=== PATIENT | female | born 1995 | race Caucasian/White ===

== ENCOUNTER 2020-12-17 23:34 | Inpatient (IN) ==
[2020-12-17] MEDS ORDERED: OXYTOCIN 30 UNITS/500 ML BAG IV PRN (23:37)
[2020-12-17] MEDS ORDERED: PATIENT'S ALLERGY INFO NEEDS ENTERED SCH (23:45)
--- NOTE | 2020-12-17 23:48 | Labor Progress Brief Note ---
Date of Service December 17, 2020 Subjective Admit Note 25 F P0000 at 39.3 weeks admitted in active labor starting last night at midnight. No leakage of fluid or bleeding. GBS is negative. Covid is pending. FHT Cat 1 with regular contractions. Cervix is 6/90/-2/vertex/intact. EFW 7 lbs. Will admit in labor. Planning for epidural. Anticipate normal delivery.
[2020-12-18 00:13] LABS: Hematocrit (blood only) 36.1 % (37-47); Hemoglobin 12.3 g/dL (12.0-16.0); Mean Corpuscular Hemoglobin 27.5 pg (25-34); Mean Corpuscular Hgb Conc 34.1 g/dL (32-36); Mean Corpuscular Volume 80.6 fL (80-100); Mean Platelet Volume 10.5 fL (7.4-10.4); Platelet Count 228 K/uL (130-400); RDW Coefficient of Variation 14.1 % (11.5-14.5); RDW Standard Deviation 41.7 fL (36.4-46.3); Red Blood Count 4.48 M/uL (4.2-5.4); White Blood Count 9.15 K/uL (4.8-10.8)
[2020-12-18] MEDS ORDERED: fentaNYL citrate 100 MCG/2 ML VIAL ONE ×2 (00:21→15:07)
[2020-12-18] MEDS ORDERED: ePHEDrine sulfate 50 MG/ML AMP ONE (00:21)
[2020-12-18] MEDS ORDERED: BUPIVACAINE 0.25% 30 ML VIAL ONE (00:21)
[2020-12-18] MEDS ORDERED: fentaNYL 2MCG/ML ROPIVACAINE 1.25MG/ML 100 ML BAG EPI ONE (00:22)
[2020-12-18] MEDS ORDERED: SODIUM CHLORIDE 0.9% INJ 10 ML VIAL ONE (00:57)
[2020-12-18] MEDS ORDERED: fentaNYL 2MCG/ML ROPIVACAINE 1.25MG/ML 100 ML BAG EPI PRN (01:10)
[2020-12-18] MEDS ORDERED: NALOXONE HCL 0.4 MG/1 ML VIAL/CARP IV PRN (01:10)
[2020-12-18] MEDS ORDERED: diphenhydrAMINE 50 MG/ML VIAL IV PRN ×2 (01:10→17:06)
[2020-12-18] MEDS ORDERED: ePHEDrine sulfate 50 MG/ML AMP IV PRN (01:10)
[2020-12-18] MEDS ORDERED: NALOXONE HCL 1 MG in SODIUM CHLORIDE 0.9% 1000ML 1,000 ML IV PRN (01:10)
--- NOTE | 2020-12-18 01:10 | Anesthesiology Consultation ---
Date of Service December 18, 2020 Assessment & Plan (1) Encounter for pre-operative examination: Chart Review Chart Review: Patient NOT seen in Pre Admission Testing and Acceptable Risk for Labor Epidural Consults Requested none ASA ASA2 Proposed Anesthesia Anesthesia Type: Labor Epidural Risk / Benefits Reviewed With: PT / POA / Parent / Guardian, Accepts Plan and Informed Consent Obtained History Height/Weight Height: 5 ft 5 in Weight: 75.75 kg Allergies Allergy/AdvReac Type Severity Reaction Status Date / Time No Known Allergies Allergy Verified 12/18/20 00:07 Medications Home Medications Medication Instructions Recorded Confirmed Last Taken [id number]-ryn-Fy-FA 1 tab PO DAILY 12/18/20 12/18/20 12/17/20 08:00 [] Active Medications Generic Name Dose Route Start Last Admin Trade Name Freq PRN Reason Stop Dose Admin Lactated Ringer's 1,000 mls @ 125 mls/hr 12/17/20 23:37 12/18/20 00:30 Lr IV 12/19/20 23:36 125 mls/hr .Q8H PRN Infusion L&D Protocol Protocol NPO Date Last Intake of Fluids: 12/17/20 Time Last Intake of Fluids: 23:00 Date Last Intake of Solids: 12/17/20 Time Last Intake of Solids: 18:00 Past Medical History Medical History No known health problems Exercise / Class Metabolic Activity II 4-5 Yardwork/Stairs/Walk up hill Past Surgical History Surgical History No history of previous surgery Past Anesthesia History No Hx of Anesthesia Complications and No Family Hx of Anesthesia Complications History of PONV No Hx of PONV and No Hx of Motion Sickness Social History Smoking Status: Never smoker Hx Alcohol Use: No Hx Substance Use: No Physical Exam Vital Signs Last Vital Signs Temp 36.8 C 12/18/20 00:12 Pulse 88 12/18/20 01:06 Resp 18 12/17/20 23:39 BP 119/64 12/18/20 01:05 Pulse Ox 97 12/18/20 01:06 ENMT Mouth: no dentition abnormality Thyromental Distance: > or= 3.5 Finger Breadths Mallampati Class: II Neck normal visual inspection Respiratory normal respiratory effort Auscultation: lungs clear to auscultation bilaterally Cardiovascular Rate/Rhythm: regular rate and regular rhythm Psychiatric Orientation: alert Lab Results Anesthesia Preop Results Results Anesthesia Widget: WBC 9.15 K/uL (4.8-10.8) 12/17/20 Hgb 12.3 g/dL (12.0-16.0) 12/17/20 Hct 36.1 % (37-47) L 12/17/20 Plt 228 K/uL (130-400) 12/17/20 SARS-CoV-2, RNA, NAAT NEGATIVE (NEGATIVE) 12/17/20 Testing Laboratory Results 12/17/20 23:53
[2020-12-18] MEDS: LACTATED RINGER'S 1,000 ML IV PRN ×3 (04:23→15:19)
--- NOTE | 2020-12-18 08:22 | Progress Note ---
Date of Service December 18, 2020 Assessment & Plan Admission and Anticipated Discharge Date Admission Date: December 17, 2020 Subjective Met pt and spouse Reviewed PNC with pt FHR CAT1 VE; 10/0 with bulging membranes AROM- with amnio hook- Light meconium anticipate VD Results & Data ([place]) Vital Signs (Past 12 Hours) Vital Signs Temp Pulse Resp BP Pulse Ox 12/18/20 08:17 112 H 80 L 12/18/20 08:16 98 H 99 12/18/20 08:11 101 H 100 12/18/20 08:08 95 H 111/69 12/18/20 08:06 84 99 12/18/20 08:01 91 H 99 12/18/20 07:56 94 H 98 12/18/20 07:52 96 H 113/68 12/18/20 07:51 91 H 97 12/18/20 07:46 84 98 12/18/20 07:41 93 H 98 12/18/20 07:37 131 H 135/61 12/18/20 07:36 128 H 98 12/18/20 07:31 98 H 98 12/18/20 07:26 91 H 98 12/18/20 07:22 100 H 104/69 12/18/20 07:21 93 H 96 12/18/20 07:16 83 97 12/18/20 07:11 85 97 12/18/20 07:06 89 119/61 98 12/18/20 07:01 73 98 12/18/20 07:00 37 C 18 12/18/20 06:56 83 98 12/18/20 06:52 78 110/63 12/18/20 06:51 81 98 12/18/20 06:49 87 93 12/18/20 06:46 73 98 12/18/20 06:41 86 98 12/18/20 06:36 85 113/64 98 12/18/20 06:31 87 98 12/18/20 06:26 89 97 12/18/20 06:22 82 116/59 L 12/18/20 06:21 83 97 12/18/20 06:16 78 99 12/18/20 06:11 87 97 12/18/20 06:06 64 115/56 L 97 12/18/20 06:01 78 98 12/18/20 05:56 80 98 12/18/20 05:53 75 117/64 12/18/20 05:51 75 98 12/18/20 05:46 86 98 12/18/20 05:41 80 99 12/18/20 05:36 76 111/57 L 98 12/18/20 05:31 80 99 12/18/20 05:30 78 92 12/18/20 05:26 90 98 12/18/20 05:21 74 115/61 98 12/18/20 05:16 60 99 12/18/20 05:11 73 99 12/18/20 05:08 68 110/55 L 12/18/20 05:06 80 100 12/18/20 05:04 18 12/18/20 05:01 93 H 98 12/18/20 04:56 80 99 12/18/20 04:55 18 12/18/20 04:51 71 114/65 98 12/18/20 04:46 79 99 12/18/20 04:41 78 98 12/18/20 04:36 77 116/61 98 12/18/20 04:31 85 99 12/18/20 04:30 36.6 C 18 12/18/20 04:26 89 99 12/18/20 04:23 75 116/57 L 12/18/20 04:21 78 97 12/18/20 04:16 84 98 12/18/20 04:11 67 96 12/18/20 04:06 83 100/63 97 12/18/20 04:01 71 97 12/18/20 03:56 81 97 12/18/20 03:51 85 102/62 96 12/18/20 03:46 69 96 12/18/20 03:41 78 98 12/18/20 03:36 78 101/63 97 12/18/20 03:31 80 97 12/18/20 03:26 59 L 97 12/18/20 03:21 85 112/63 98 12/18/20 03:16 69 96 12/18/20 03:11 72 97 12/18/20 03:06 76 109/63 97 12/18/20 03:01 80 96 12/18/20 02:56 76 96 12/18/20 02:52 65 112/66 05 02:51 67 97 12/18/20 02:46 62 97 12/18/20 02:41 81 97 12/18/20 02:38 71 102/53 L 12/18/20 02:36 86 98/56 L 97 12/18/20 02:31 82 98 12/18/20 02:30 18 12/18/20 02:26 89 99 12/18/20 02:21 89 116/67 98 12/18/20 02:16 93 H 98 12/18/20 02:11 104 H 98 12/18/20 02:08 82 112/62 12/18/20 02:06 67 98 12/18/20 02:01 86 98 12/18/20 01:56 74 98 12/18/20 01:52 88 103/64 12/18/20 01:51 88 98 12/18/20 01:47 18 12/18/20 01:46 96 H 100 12/18/20 01:41 70 98 12/18/20 01:36 67 115/67 98 12/18/20 01:31 104 H 99 12/18/20 01:30 18 12/18/20 01:26 83 98 12/18/20 01:21 103 H 114/69 97 12/18/20 01:16 82 97 12/18/20 01:15 18 12/18/20 01:11 83 97 12/18/20 01:10 18 12/18/20 01:06 88 97 12/18/20 01:05 86 18 119/64 12/18/20 01:03 94 H 115/65 12/18/20 01:01 83 127/68 98 12/18/20 01:00 18 12/18/20 00:56 98 H 135/79 97 12/18/20 00:55 109 H 18 93 12/18/20 00:51 101 H 97 12/18/20 00:46 113 H 98 12/18/20 00:16 88 119/72 12/18/20 00:12 36.8 C 12/17/20 23:39 18
[2020-12-18] MEDS ORDERED: miSOPROStoL 100 MCG TAB ONE (08:25)
[2020-12-18] MEDS ORDERED: METHYLERGONOVINE MALEATE 0.2 MG/ML AMP ONE (08:25)
[2020-12-18] MEDS ORDERED: LIDOCAINE 1% LOCAL 20 ML VIAL ONE (08:36)
[2020-12-18] MEDS ORDERED: bisacodyL 10 MG SUPP PR PRN (09:12)
[2020-12-18] MEDS ORDERED: DIPHTHERIA/TETANUS/PERTUSSIS 0.5 ML SYR/VIAL IM ONE (09:12)
[2020-12-18] MEDS ORDERED: ACETAMINOPHEN 325 MG TAB PO PRN (09:12)
[2020-12-18] MEDS ORDERED: HYDROCORTISONE ACETATE 25 MG SUPP PR PRN ×2 (09:12→17:06)
[2020-12-18] MEDS ORDERED: METHYLERGONOVINE MALEATE 0.2 MG/ML AMP IM ONE (09:12)
[2020-12-18] MEDS ORDERED: SUPERCREAM 0.870% 15 GM JAR EXT PRN ×2 (09:12→17:06)
[2020-12-18] MEDS ORDERED: OXYTOCIN 30 UNITS/500 ML BAG IV PRN (09:12)
[2020-12-18] MEDS ORDERED: BENZOCAINE 20% AER SPR 82.5 GM CAN EXT PRN ×2 (09:12→17:06)
[2020-12-18] MEDS ORDERED: miSOPROStoL 100 MCG TAB PR ONE (09:12)
--- NOTE | 2020-12-18 10:16 | Delivery Summary ---
DATE OF OPERATION: 12/18/2020 The patient delivered a live infant female in left occiput anterior presentation. There was known meconium prior to delivery. Infant was delivered. No nuchal cord was seen. was placed on mother's abdomen. Cord was clamped and cut and handed over to the waiting pediatric team. No delayed cord clamp was performed because of the meconium. Meconium after delivery appeared to be moderate to thick. Cord blood was obtained. Placenta was spontaneously delivered. Inspection of the placenta shows a normal-looking placenta with some meconium stain. Inspection of the perineum showed a second-degree midline laceration, which was repaired with 2-0 and 3-0 Vicryl. Rectal exam post repair shows good sphincter tone, no sutures are palpated in the rectum. Estimated blood loss is 450 mL. There was good hemostasis. All instruments are removed from the vagina and accounted for x2 including sponges, needles and retractors. Mother and baby are doing well in the recovery. I attest to the content of the Intraoperative Record and any orders documented therein. Any exceptions are noted below. STACEY
--- NOTE | 2020-12-18 10:33 | Anesthesia Procedure Note ---
Date of Service December 18, 2020 Anesthesia Post Epidural Note Vital Signs Vital Signs: Temp Pulse Resp BP Pulse Ox 36.9 C 82 20 139/73 100 12/18/20 09:00 12/18/20 10:21 12/18/20 10:30 12/18/20 10:21 12/18/20 09:11 Notes Mental Status: alert / awake / arousable and participated in evaluation Patient Amnestic to Procedure: No Nausea / Vomiting: adequately controlled Pain: adequately controlled Airway Patency, RR, SpO2: stable & adequate BP & HR: stable & adequate Hydration State: stable & adequate Neuraxial Anesthesia: was administered and sensory block is resolving Anesthetic Complications: no major complications apparent and Pt Satisfied with anesthetic care Epidural: Removed without complications and With tip intact
[2020-12-18] MEDS: IBUPROFEN 600 MG TAB PO PRN ×2 (10:42→18:57)
[2020-12-18] MEDS ORDERED: MoRPHine SULFATE 4 MG/ML 1 ML CARP\\VIAL IV STA (14:54)
[2020-12-18] MEDS ORDERED: MoRPHine SULFATE 4 MG/ML 1 ML CARP\\VIAL ONE (14:58)
[2020-12-18] MEDS ORDERED: ONDANSETRON INJ 2 MG/ML 2 ML VIAL IV PRN ×2 (15:16→17:06)
[2020-12-18] MEDS ORDERED: ATROPINE SULFATE 0.1 MG/ML 10ML SYR IV PRN (15:16)
[2020-12-18] MEDS ORDERED: HYDROmorphone INJ 1 MG/ML SYRINGE IV PRN (15:16)
[2020-12-18] MEDS ORDERED: fentaNYL citrate 100 MCG/2 ML VIAL IV PRN (15:16)
--- NOTE | 2020-12-18 15:16 | Progress Note ---
Date of Service December 18, 2020 Assessment & Plan Admission and Anticipated Discharge Date Admission Date: December 17, 2020 Subjective called to evaluate pt with c/o rectal pressure PE; Nml bilateral labia. Digital exam is significant for a rt lateral wall hematoma plan Evaluate vagina in OR under anesthesia and consider I&D of vaginal hematoma Consent obtained Results & Data ([facility]) Vital Signs (Past 12 Hours) Vital Signs Temp Pulse Pulse Resp BP BP Pulse Ox 12/18/20 15:00 82 18 124/73 100 12/18/20 11:30 36.9 C 88 16 117/75 12/18/20 10:51 78 141/65 H 12/18/20 10:37 93 H 142/63 H 12/18/20 10:30 20 12/18/20 10:21 82 139/73 12/18/20 10:07 144 H 158/97 H 12/18/20 10:00 20 12/18/20 09:37 97 H 128/60 12/18/20 09:21 92 H 125/68 12/18/20 09:13 109 H 125/73 12/18/20 09:11 105 H 100 12/18/20 09:07 99 H 123/63 12/18/20 09:06 101 H 99 12/18/20 09:03 95 H 86 L 12/18/20 09:01 105 H 100 12/18/20 09:00 36.9 C 104 H 18 134/69 12/18/20 08:56 96 H 100 12/18/20 08:51 98 H 120/68 100 12/18/20 08:49 96 H 116/66 12/18/20 08:46 100 H 100 12/18/20 08:41 102 H 98 12/18/20 08:36 100 H 115/65 98 12/18/20 08:32 104 H 120/62 12/18/20 08:31 109 H 97 12/18/20 08:29 181 H 92 12/18/20 08:26 151 H 97 12/18/20 08:25 16 12/18/20 08:24 129 H 92 12/18/20 08:22 169 H 127/72 12/18/20 08:21 126 H 99 12/18/20 08:17 112 H 80 L 12/18/20 08:16 98 H 99 12/18/20 08:11 101 H 100 12/18/20 08:08 95 H 111/69 12/18/20 08:06 84 99 12/18/20 08:01 91 H 99 12/18/20 07:56 94 H 98 12/18/20 07:55 18 12/18/20 07:52 96 H 113/68 12/18/20 07:51 91 H 97 12/18/20 07:46 84 98 12/18/20 07:41 93 H 98 12/18/20 07:37 131 H 135/61 12/18/20 07:36 128 H 98 12/18/20 07:31 98 H 98 12/18/20 07:26 91 H 98 12/18/20 07:25 18 12/18/20 07:22 100 H 104/69 12/18/20 07:21 93 H 96 12/18/20 07:16 83 97 12/18/20 07:11 85 97 12/18/20 07:06 89 119/61 98 12/18/20 07:01 73 98 12/18/20 07:00 37 C 18 12/18/20 06:56 83 98 12/18/20 06:52 78 110/63 12/18/20 06:51 81 98 12/18/20 06:49 87 93 12/18/20 06:46 73 98 12/18/20 06:41 86 98 12/18/20 06:36 85 113/64 98 12/18/20 06:31 87 98 12/18/20 06:26 89 97 12/18/20 06:22 82 116/59 L 12/18/20 06:21 83 97 12/18/20 06:16 78 99 12/18/20 06:11 87 97 12/18/20 06:06 64 115/56 L 97 12/18/20 06:01 78 98 12/18/20 05:56 80 98 12/18/20 05:53 75 117/64 12/18/20 05:51 75 98 12/18/20 05:46 86 98 12/18/20 05:41 80 99 12/18/20 05:36 76 111/57 L 98 12/18/20 05:31 80 99 05 05:30 78 92 12/18/20 05:26 90 98 12/18/20 05:21 74 115/61 98 12/18/20 05:16 60 99 12/18/20 05:11 73 99 12/18/20 05:08 68 110/55 L 12/18/20 05:06 80 100 12/18/20 05:04 18 12/18/20 05:01 93 H 98 12/18/20 04:56 80 99 12/18/20 04:55 18 12/18/20 04:51 71 114/65 98 12/18/20 04:46 79 99 12/18/20 04:41 78 98 12/18/20 04:36 77 116/61 98 12/18/20 04:31 85 99 12/18/20 04:30 36.6 C 18 12/18/20 04:26 89 99 12/18/20 04:23 75 116/57 L 12/18/20 04:21 78 97 12/18/20 04:16 84 98 12/18/20 04:11 67 96 12/18/20 04:06 83 100/63 97 12/18/20 04:01 71 97 12/18/20 03:56 81 97 12/18/20 03:51 85 102/62 96 12/18/20 03:46 69 96 12/18/20 03:41 78 98 12/18/20 03:36 78 101/63 97 12/18/20 03:31 80 97 12/18/20 03:26 59 L 97 12/18/20 03:21 85 112/63 98 12/18/20 03:16 69 96 12/18/20 03:11 72 97
--- NOTE | 2020-12-18 15:25 | Anesthesiology Consultation ---
Date of Service December 18, 2020 Assessment & Plan (1) Encounter for pre-operative examination: Chart Review Chart Review: Acceptable Risk for Surgery and Patient NOT seen in Pre Admission Testing Consults Requested none History Surgery Operation Date: 12/18/20 14:10 Proposed Procedures p Vaginal Incision and Drainage, Hematoma - Minesh Bliss MD Height/Weight Height: 5 ft 5 in Weight: 75.75 kg Allergies Allergy/AdvReac Type Severity Reaction Status Date / Time No Known Allergies Allergy Verified 12/18/20 00:07 Medications Home Medications Medication Instructions Recorded Confirmed Last Taken ushwwpvy-jzy-Xs-FA 1 tab PO DAILY 12/18/20 12/18/20 12/17/20 08:00 [] Active Medications Generic Name Dose Route Start Last Admin Trade Name Freq PRN Reason Stop Dose Admin Benzocaine 1 appln 12/18/20 09:12 12/18/20 12:54 Benzocaine 20% Aer Spr 82.5 Gm Can EXT 01/17/21 09:11 1 appln PRN PRN Administration Perineal Discomfort Cocaine HCl 1 gm 12/18/20 09:12 12/18/20 15:19 Supercream 0.870% 15 Gm Jar EXT 01/01/21 09:11 1 gm BID PRN Administration Hemorrhoidal Inflammation Oxytocin 30 units in 500 mls @ 333.333 mls/hr 12/17/20 23:37 12/18/20 08:30 Pitocin IV 01/16/21 23:36 59.94 units/hr .Q1H30M PRN 999 mls/hr Bleeding Control Administration Protocol 20 UNITS/HR Lactated Ringer's 1,000 mls @ 125 mls/hr 12/17/20 23:37 12/18/20 15:19 Lr IV 12/19/20 23:36 125 mls/hr .Q8H PRN Administration L&D Protocol Protocol Ibuprofen 600 mg 12/18/20 09:12 12/18/20 10:42 Ibuprofen 600 Mg Tab PO 01/17/21 09:11 600 mg Q4H PRN Administration Pain/BAILEY/Cramping/Fever NPO Date Last Intake of Fluids: 12/17/20 Time Last Intake of Fluids: 23:00 Date Last Intake of Solids: 12/17/20 Time Last Intake of Solids: 18:00 Past Medical History Medical History No known health problems Exercise / Class Metabolic Activity II 4-5 Yardwork/Stairs/Walk up hill Past Surgical History Surgical History No history of previous surgery Past Anesthesia History No Hx of Anesthesia Complications and No Family Hx of Anesthesia Complications History of PONV No Hx of PONV and No Hx of Motion Sickness Social History Smoking Status: Never smoker Do You Dip or Chew Tobacco: No Hx Alcohol Use: No Hx Substance Use: No Physical Exam Vital Signs Last Vital Signs Temp 36.9 C 12/18/20 11:30 Pulse 82 12/18/20 15:00 Resp 18 12/18/20 15:00 BP 124/73 12/18/20 15:00 Pulse Ox 100 12/18/20 15:00 Testing Laboratory Results 12/17/20 23:53
[2020-12-18] MEDS ORDERED: LACTATED RINGER'S 1,000 ML IV SCH ×2 (16:00→17:15)
[2020-12-18] MEDS ORDERED: ONDANSETRON INJ 2 MG/ML 2 ML VIAL ONE (16:22)
[2020-12-18] MEDS ORDERED: LIDOCAINE 2% 2 ML VIAL/AMP(20MG/ML) INFIL ONE (16:22)
[2020-12-18] MEDS ORDERED: DEXAMETHASONE SOD INJ 4 MG/ML VIAL ONE (16:22)
[2020-12-18] MEDS ORDERED: SUCCINYLCHOLINE CHLORIDE 20 MG/ML 10 ML VIAL IV ONE (16:22)
[2020-12-18] MEDS ORDERED: PROPOFOL IV EMULSION 10 MG/ML 20 ML VIAL IV ONE (16:22)
[2020-12-18] MEDS ORDERED: SENNA 8.6 MG TAB PO PRN (17:06)
[2020-12-18] MEDS ORDERED: PROMETHAZINE HCL 25 MG in SODIUM CHLORIDE 0.9% 50 ML IV PRN (17:06)
[2020-12-18] MEDS ORDERED: oxyCODONE/ACETAMINOPHEN 5mg/325mg TAB PO PRN (17:06)
[2020-12-18] MEDS ORDERED: diphenhydrAMINE Capsule 25 MG CAP PO PRN (17:06)
[2020-12-18] MEDS ORDERED: MAGNESIUM HYDROXIDE SUSP 30 ML UDC PO PRN (17:06)
[2020-12-18] MEDS ORDERED: ZOLPIDEM TARTRATE 5 MG TAB PO PRN (17:06)
[2020-12-18] MEDS ORDERED: IBUPROFEN 600 MG TAB PO PRN (17:06)
--- NOTE | 2020-12-18 17:11 | Post Operative Brief Note ---
Immediate Post Op Note v1 Date of Surgery December 18, 2020 Pre & Post Diagnosis Operation Date: 12/18/20 14:10 Pre-Op Diagnosis: Vaginal Hematoma Post-Op Diagnosis: Vaginal Hematoma I identified the patient and participated in the time-out.: Yes Procedure Operation Date: 12/18/20 14:10 Actual Procedures p Incision and Drainage, Vaginal Hematoma(Not Applicable) - Minesh Bliss MD Surgeon Minesh Bliss MD Device Sales Consultant none Estimated Blood Loss 110 Findings Consistent with Post-Op Diagnosis
--- NOTE | 2020-12-18 18:03 | Anesthesiology Progress Note ---
Date of Service December 18, 2020 Anesthesia Post Procedure Vital Signs Vital Signs: Temp Pulse Pulse Pulse Resp BP BP 12/18/20 17:38 36.6 C 71 20 116/73 12/18/20 17:30 81 20 114/71 12/18/20 17:20 86 18 133/80 12/18/20 17:10 79 15 123/79 12/18/20 17:00 75 20 128/83 12/18/20 16:57 36.3 C L 85 18 120/78 12/18/20 16:00 37.5 C 78 18 12/18/20 15:00 82 18 12/18/20 11:30 36.9 C 88 16 12/18/20 10:51 78 141/65 H 12/18/20 10:37 93 H 142/63 H 12/18/20 10:30 20 12/18/20 10:21 82 139/73 12/18/20 10:07 144 H 158/97 H 12/18/20 10:00 20 12/18/20 09:37 97 H 128/60 12/18/20 09:21 92 H 125/68 12/18/20 09:13 109 H 125/73 12/18/20 09:11 105 H 12/18/20 09:07 99 H 123/63 12/18/20 09:06 101 H 12/18/20 09:03 95 H 12/18/20 09:01 105 H 12/18/20 09:00 36.9 C 104 H 18 134/69 12/18/20 08:56 96 H 12/18/20 08:51 98 H 120/68 12/18/20 08:49 96 H 116/66 12/18/20 08:46 100 H 12/18/20 08:41 102 H 12/18/20 08:36 100 H 115/65 12/18/20 08:32 104 H 120/62 12/18/20 08:31 109 H 12/18/20 08:29 181 H 12/18/20 08:26 151 H 12/18/20 08:25 16 12/18/20 08:24 129 H 12/18/20 08:22 169 H 127/72 12/18/20 08:21 126 H 12/18/20 08:17 112 H 12/18/20 08:16 98 H 12/18/20 08:11 101 H 12/18/20 08:08 95 H 111/69 12/18/20 08:06 84 12/18/20 08:01 91 H 12/18/20 07:56 94 H 12/18/20 07:55 18 12/18/20 07:52 96 H 113/68 12/18/20 07:51 91 H 12/18/20 07:46 84 12/18/20 07:41 93 H 12/18/20 07:37 131 H 135/61 12/18/20 07:36 128 H 12/18/20 07:31 98 H 12/18/20 07:26 91 H 12/18/20 07:25 18 12/18/20 07:22 100 H 104/69 12/18/20 07:21 93 H 12/18/20 07:16 83 12/18/20 07:11 85 12/18/20 07:06 89 119/61 12/18/20 07:01 73 12/18/20 07:00 37 C 18 12/18/20 06:56 83 12/18/20 06:52 78 110/63 12/18/20 06:51 81 12/18/20 06:49 87 12/18/20 06:46 73 12/18/20 06:41 86 12/18/20 06:36 85 113/64 12/18/20 06:31 87 12/18/20 06:26 89 12/18/20 06:22 82 116/59 L 12/18/20 06:21 83 12/18/20 06:16 78 12/18/20 06:11 87 12/18/20 06:06 64 115/56 L 12/18/20 06:01 78 12/18/20 05:56 80 12/18/20 05:53 75 117/64 12/18/20 05:51 75 12/18/20 05:46 86 12/18/20 05:41 80 12/18/20 05:36 76 111/57 L 12/18/20 05:31 80 12/18/20 05:30 78 12/18/20 05:26 90 12/18/20 05:21 74 115/61 12/18/20 05:16 60 12/18/20 05:11 73 12/18/20 05:08 68 110/55 L 12/18/20 05:06 80 12/18/20 05:04 18 12/18/20 05:01 93 H 12/18/20 04:56 80 12/18/20 04:55 18 12/18/20 04:51 71 114/65 12/18/20 04:46 79 12/18/20 04:41 78 12/18/20 04:36 77 116/61 12/18/20 04:31 85 12/18/20 04:30 36.6 C 18 12/18/20 04:26 89 12/18/20 04:23 75 116/57 L 12/18/20 04:21 78 12/18/20 04:16 84 12/18/20 04:11 67 12/18/20 04:06 83 100/63 12/18/20 04:01 71 12/18/20 03:56 81 12/18/20 03:51 85 102/62 12/18/20 03:46 69 12/18/20 03:41 78 12/18/20 03:36 78 101/63 12/18/20 03:31 80 12/18/20 03:26 59 L 12/18/20 03:21 85 112/63 12/18/20 03:16 69 12/18/20 03:11 72 12/18/20 03:06 76 109/63 12/18/20 03:01 80 12/18/20 02:56 76 12/18/20 02:52 65 112/66 12/18/20 02:51 67 12/18/20 02:46 62 12/18/20 02:41 81 12/18/20 02:38 71 102/53 L 12/18/20 02:36 86 98/56 L 12/18/20 02:31 82 12/18/20 02:30 18 12/18/20 02:26 89 12/18/20 02:21 89 116/67 12/18/20 02:16 93 H 12/18/20 02:11 104 H 12/18/20 02:08 82 112/62 12/18/20 02:06 67 12/18/20 02:01 86 12/18/20 01:56 74 12/18/20 01:52 88 103/64 12/18/20 01:51 88 12/18/20 01:47 18 12/18/20 01:46 96 H 12/18/20 01:41 70 12/18/20 01:36 67 115/67 12/18/20 01:31 104 H 12/18/20 01:30 18 12/18/20 01:26 83 12/18/20 01:21 103 H 114/69 12/18/20 01:16 82 12/18/20 01:15 18 12/18/20 01:11 83 12/18/20 01:10 18 12/18/20 01:06 88 12/18/20 01:05 86 18 119/64 12/18/20 01:03 94 H 115/65 12/18/20 01:01 83 127/68 12/18/20 01:00 18 12/18/20 00:56 98 H 135/79 12/18/20 00:55 109 H 18 12/18/20 00:51 101 H 12/18/20 00:46 113 H 12/18/20 00:16 88 119/72 12/18/20 00:12 36.8 C 12/17/20 23:39 18 BP Pulse Ox 12/18/20 17:38 96 12/18/20 17:30 97 12/18/20 17:20 97 12/18/20 17:10 100 12/18/20 17:00 99 12/18/20 16:57 99 12/18/20 16:00 125/77 99 12/18/20 15:00 124/73 100 12/18/20 11:30 117/75 12/18/20 10:51 12/18/20 10:37 12/18/20 10:30 12/18/20 10:21 12/18/20 10:07 12/18/20 10:00 12/18/20 09:37 12/18/20 09:21 12/18/20 09:13 12/18/20 09:11 100 12/18/20 09:07 12/18/20 09:06 99 12/18/20 09:03 86 L 12/18/20 09:01 100 12/18/20 09:00 12/18/20 08:56 100 12/18/20 08:51 100 12/18/20 08:49 12/18/20 08:46 100 12/18/20 08:41 98 12/18/20 08:36 98 12/18/20 08:32 12/18/20 08:31 97 12/18/20 08:29 92 12/18/20 08:26 97 12/18/20 08:25 12/18/20 08:24 92 12/18/20 08:22 12/18/20 08:21 99 12/18/20 08:17 80 L 12/18/20 08:16 99 12/18/20 08:11 100 12/18/20 08:08 12/18/20 08:06 99 12/18/20 08:01 99 12/18/20 07:56 98 12/18/20 07:55 12/18/20 07:52 12/18/20 07:51 97 12/18/20 07:46 98 12/18/20 07:41 98 12/18/20 07:37 12/18/20 07:36 98 12/18/20 07:31 98 12/18/20 07:26 98 12/18/20 07:25 12/18/20 07:22 12/18/20 07:21 96 12/18/20 07:16 97 12/18/20 07:11 97 12/18/20 07:06 98 12/18/20 07:01 98 12/18/20 07:00 12/18/20 06:56 98 12/18/20 06:52 12/18/20 06:51 98 12/18/20 06:49 93 12/18/20 06:46 98 12/18/20 06:41 98 12/18/20 06:36 98 12/18/20 06:31 98 12/18/20 06:26 97 12/18/20 06:22 12/18/20 06:21 97 12/18/20 06:16 99 12/18/20 06:11 97 12/18/20 06:06 97 12/18/20 06:01 98 12/18/20 05:56 98 12/18/20 05:53 12/18/20 05:51 98 12/18/20 05:46 98 12/18/20 05:41 99 05 05:36 98 12/18/20 05:31 99 05 05:30 92 05/28/21 05:26 98 12/18/20 05:21 98 12/18/20 05:16 99 12/18/20 05:11 99 12/18/20 05:08 12/18/20 05:06 100 12/18/20 05:04 12/18/20 05:01 98 12/18/20 04:56 99 12/18/20 04:55 12/18/20 04:51 98 12/18/20 04:46 99 12/18/20 04:41 98 12/18/20 04:36 98 12/18/20 04:31 99 12/18/20 04:30 12/18/20 04:26 99 12/18/20 04:23 12/18/20 04:21 97 12/18/20 04:16 98 12/18/20 04:11 96 12/18/20 04:06 97 12/18/20 04:01 97 12/18/20 03:56 97 12/18/20 03:51 96 12/18/20 03:46 96 12/18/20 03:41 98 12/18/20 03:36 97 12/18/20 03:31 97 12/18/20 03:26 97 12/18/20 03:21 98 12/18/20 03:16 96 12/18/20 03:11 97 12/18/20 03:06 97 12/18/20 03:01 96 12/18/20 02:56 96 12/18/20 02:52 12/18/20 02:51 97 12/18/20 02:46 97 12/18/20 02:41 97 12/18/20 02:38 12/18/20 02:36 97 12/18/20 02:31 98 12/18/20 02:30 12/18/20 02:26 99 12/18/20 02:21 98 12/18/20 02:16 98 12/18/20 02:11 98 12/18/20 02:08 12/18/20 02:06 98 12/18/20 02:01 98 12/18/20 01:56 98 12/18/20 01:52 12/18/20 01:51 98 12/18/20 01:47 12/18/20 01:46 100 12/18/20 01:41 98 12/18/20 01:36 98 12/18/20 01:31 99 12/18/20 01:30 12/18/20 01:26 98 12/18/20 01:21 97 12/18/20 01:16 97 12/18/20 01:15 12/18/20 01:11 97 12/18/20 01:10 12/18/20 01:06 97 12/18/20 01:05 12/18/20 01:03 12/18/20 01:01 98 12/18/20 01:00 12/18/20 00:56 97 12/18/20 00:55 93 12/18/20 00:51 97 12/18/20 00:46 98 12/18/20 00:16 12/18/20 00:12 12/17/20 23:39 Pain Intensity Perineal: Pain Intensity: 10 Transfer of Care Handoff Completed per policy Notes Mental Status: alert / awake / arousable and participated in evaluation Patient Amnestic to Procedure: Yes Nausea / Vomiting: adequately controlled Pain: adequately controlled Airway Patency, RR, SpO2: stable & adequate BP & HR: stable & adequate Hydration State: stable & adequate Anesthetic Complications: no major complications apparent and Pt Satisfied with anesthetic care
[2020-12-18] MEDS: DOCUSATE SODIUM 100 MG CAP PO SCH (20:47)
[2020-12-18] MEDS: SIMETHICONE 80 MG CHEW PO SCH (20:47)
[2020-12-18] MEDS ORDERED: DOCUSATE SODIUM 100 MG CAP PO SCH (21:00)
[2020-12-19] MEDS: IBUPROFEN 600 MG TAB PO PRN ×3 (00:48→17:04)
[2020-12-19 05:58] LABS: Hematocrit (blood only) 30.7 % (37-47); Hemoglobin 10.3 g/dL (12.0-16.0); Mean Corpuscular Hemoglobin 27.2 pg (25-34); Mean Corpuscular Hgb Conc 33.6 g/dL (32-36); Mean Corpuscular Volume 81.2 fL (80-100); Mean Platelet Volume 10.1 fL (7.4-10.4); Platelet Count 203 K/uL (130-400); RDW Coefficient of Variation 14.4 % (11.5-14.5); RDW Standard Deviation 42.7 fL (36.4-46.3); Red Blood Count 3.78 M/uL (4.2-5.4); White Blood Count 14.19 K/uL (4.8-10.8)
[2020-12-19] MEDS ORDERED: PRENATAL VITAMIN 1 TAB PO SCH (08:00)
[2020-12-19] MEDS ORDERED: FERROUS SULFATE 325 MG TAB PO SCH (08:00)
[2020-12-19] MEDS: DOCUSATE SODIUM 100 MG CAP PO SCH ×2 (08:05→21:51)
[2020-12-19] MEDS: PRENATAL VITAMIN 1 TAB PO SCH (08:05)
[2020-12-19] MEDS: FERROUS SULFATE 325 MG TAB PO SCH (08:05)
[2020-12-19] MEDS: SIMETHICONE 80 MG CHEW PO SCH ×4 (08:05→21:51)
--- NOTE | 2020-12-19 08:54 | Obstetrical Progress Note ---
Date of Service December 19, 2020 Assessment & Plan Admission and Anticipated Discharge Date Admission Date: December 17, 2020 Subjective Patient is seen and examined. She feels well, no complaints. Ambulating without dizziness Voiding without difficulty Tolerating regular diet with out N&V Bleeding is minimal No fever/ chills/ CP/ SOB/ N&V/ Leg pain Breast feeding without problems She had rectal pain/ pressure and found to have vaginal hematoma and I&D was done. She feels much better, states " like a different person" Has not had BM yet, eating her 1st meal. No h/o constipation Vital Signs Temp Pulse Resp BP BP Pulse Ox 12/19/20 05:30 36.7 C 82 16 108/70 98 12/19/20 01:45 36.7 C 67 16 109/66 98 12/18/20 21:00 37.2 C 90 16 109/69 96 Lab Results 12/17/20 12/17/20 12/17/20 Range/Units 23:53 23:53 23:53 WBC 9.15 (4.8-10.8) K/uL RBC 4.48 (4.2-5.4) M/uL Hgb 12.3 (12.0-16.0) g/dL Hct 36.1 L (37-47) % MCV 80.6 (80-100) fL MCH 27.5 (25-34) pg MCHC 34.1 (32-36) g/dL RDW Std Deviation 41.7 (36.4-46.3) fL RDW Coeff of Jeniffer 14.1 (11.5-14.5) % Plt Count 228 (130-400) K/uL MPV 10.5 H (7.4-10.4) fL COVID-19 Eval Order Covid19 [facility]Now [facility] SARS-CoV-2, RNA, NAAT NEGATIVE (NEGATIVE) Blood Type Antibody Screen 12/18/20 12/19/20 Range/Units 15:36 05:30 WBC 14.19 H (4.8-10.8) K/uL RBC 3.78 L (4.2-5.4) M/uL Hgb 10.3 L (12.0-16.0) g/dL Hct 30.7 L (37-47) % MCV 81.2 (80-100) fL MCH 27.2 (25-34) pg MCHC 33.6 (32-36) g/dL RDW Std Deviation 42.7 (36.4-46.3) fL RDW Coeff of Jeniffer 14.4 (11.5-14.5) % Plt Count 203 (130-400) K/uL MPV 10.1 (7.4-10.4) fL COVID-19 Eval Order SARS-CoV-2, RNA, NAAT (NEGATIVE) Blood Type O Positive Antibody Screen NEGATIVE PE: General: Alert, orientedx3, NAD Abd: soft, NT, fundus firm, below Umbilicus Perineum intact, Lochia rubra minimal No swelling, no edema, anal skin/ area appears normal Gentle digital exam 1 finger feels normal Ext; NT, no edema AP: 25 yo s/p , ppd# 1, s/p I&D of vaginal hematoma, pod #1 VSS Afebrile doing well PE normal Continue routine care All questions were answered D/C home tomorrow Results & Data ([facility]) Vital Signs (Past 12 Hours) Vital Signs Temp Pulse Resp BP BP Pulse Ox 12/19/20 05:30 36.7 C 82 16 108/70 98 12/19/20 01:45 36.7 C 67 16 109/66 98 12/18/20 21:00 37.2 C 90 16 109/69 96
[2020-12-19] MEDS ORDERED: bisacodyL 5 MG TABEC PO SCH ×2 (20:00)
[2020-12-20] MEDS: IBUPROFEN 600 MG TAB PO PRN ×2 (00:01→07:35)
[2020-12-20] MEDS: FERROUS SULFATE 325 MG TAB PO SCH (07:35)
[2020-12-20] MEDS: SIMETHICONE 80 MG CHEW PO SCH (07:35)
[2020-12-20] MEDS: DOCUSATE SODIUM 100 MG CAP PO SCH (07:35)
[2020-12-20] MEDS: PRENATAL VITAMIN 1 TAB PO SCH (07:35)
--- NOTE | 2020-12-20 10:26 | Obstetrical Progress Note ---
Date of Service December 20, 2020 Assessment & Plan Admission and Anticipated Discharge Date Admission Date: December 17, 2020 Subjective Patient is seen and examined. She feels well, no complaints. Desires d/c Ambulating without dizziness Voiding without difficulty BM+, no pain Tolerating regular diet with out N&V Bleeding is minimal No fever/ chills/ CP/ SOB/ N&V/ Leg pain Breast feeding without problems Vital Signs Temp Pulse Resp BP BP Pulse Ox 12/20/20 07:31 36.7 C 80 18 108/66 98 12/20/20 07:30 36.7 C 81 18 107/70 100 12/20/20 00:30 36.8 C 66 16 110/63 96 Lab Results 12/17/20 12/17/20 12/17/20 Range/Units 23:53 23:53 23:53 WBC 9.15 (4.8-10.8) K/uL RBC 4.48 (4.2-5.4) M/uL Hgb 12.3 (12.0-16.0) g/dL Hct 36.1 L (37-47) % MCV 80.6 (80-100) fL MCH 27.5 (25-34) pg MCHC 34.1 (32-36) g/dL RDW Std Deviation 41.7 (36.4-46.3) fL RDW Coeff of Jeniffer 14.1 (11.5-14.5) % Plt Count 228 (130-400) K/uL MPV 10.5 H (7.4-10.4) fL COVID-19 Eval Order Covid19 [facility] SARS-CoV-2, RNA, NAAT NEGATIVE (NEGATIVE) Blood Type Antibody Screen 12/18/20 12/19/20 Range/Units 15:36 05:30 WBC 14.19 H (4.8-10.8) K/uL RBC 3.78 L (4.2-5.4) M/uL Hgb 10.3 L (12.0-16.0) g/dL Hct 30.7 L (37-47) % MCV 81.2 (80-100) fL MCH 27.2 (25-34) pg MCHC 33.6 (32-36) g/dL RDW Std Deviation 42.7 (36.4-46.3) fL RDW Coeff of Jeniffer 14.4 (11.5-14.5) % Plt Count 203 (130-400) K/uL MPV 10.1 (7.4-10.4) fL COVID-19 Eval Order SARS-CoV-2, RNA, NAAT (NEGATIVE) Blood Type O Positive Antibody Screen NEGATIVE PE: General: Alert, orientedx3, NAD Abd: soft, NT, fundus firm, below Umbilicus Perineum intact, Lochia rubra minimal Ext; NT, no edema AP: 25 yo s/p , ppd# 2 VSS Afebrile doing well Continue routine care All questions were answered D/C home, f/u in office. Results & Data ([facility]) Vital Signs (Past 12 Hours) Vital Signs Temp Pulse Resp BP BP Pulse Ox 12/20/20 07:31 36.7 C 80 18 108/66 98 12/20/20 07:30 36.7 C 81 18 107/70 100 12/20/20 00:30 36.8 C 66 16 110/63 96
--- NOTE | 2020-12-22 08:00 | Operative Report (OR) ---
DATE OF OPERATION: 12/18/2020 INDICATION FOR SURGERY: This is a 25-year-old status post vaginal delivery this morning, who was finally noted to have vaginal hematoma. The patient was taken to the operating room for evacuation of hematoma. PREOPERATIVE DIAGNOSES: 1. Spontaneous vaginal delivery. 2. Right vaginal hematoma. POSTOPERATIVE DIAGNOSES: 1. Spontaneous vaginal delivery. 2. Right vaginal hematoma. PROCEDURE: Examination under anesthesia, incision and drainage of vaginal hematoma. SURGEON: Minesh Bliss MD SAW MAKER: None. ESTIMATED BLOOD LOSS: 100 mL. URINE OUTPUT: 1000 mL of clear urine at the end of the procedure. INTRAVENOUS FLUIDS: 600 mL. FINDINGS: Right vaginal hematoma about 5 x 4 cm. ____ examination in the OR was intact. COMPLICATIONS: None. DRAINS: None. ANESTHESIA: General. SPECIMENS: None. DESCRIPTION OF PROCEDURE: The patient was taken to the operating room where she was prepped and draped in normal sterile fashion in dorsal lithotomy position. Time-out was called. Bladder was catheterized and 1000 mL of clear urine was obtained. Inspection of the vagina and perineum showed a 5 x 4 right wall vaginal hematoma. The laceration was repaired this morning after vaginal delivery remained intact. An incision was made in the hematoma and hematoma clots evacuated. The edges of the incision were ____ with 3-0 Vicryl to keep the opening patent. There was good hemostasis. Rectal exam was performed and the rectum was intact. The rectum was not involved in the hematoma or the dissection of the hematoma area. All instruments were removed from the vagina and accounted for x2 including sponges, needles, and retractors. The patient is stable and sent to recovery in stable condition. I attest to the content of the Intraoperative Record and any orders documented therein. Any exception s are noted below.
--- NOTE | 2021-01-06 10:34 | Discharge Summary (DS) ---
DATE OF ADMISSION: 12/18/2020 DATE OF DISCHARGE: 12/20/2020 CHIEF COMPLAINT: at term and in labor. HISTORY OF PRESENT ILLNESS: This is a 25-year-old G1, P0, due date was 12/21/2020 who was admitted to labor and delivery on 12/17/2020. On that day, she was 39 weeks and 4 days. The patient went on to have a vaginal delivery on 12/18/2020. Details of the delivery is in the medical records. Delivery was otherwise unremarkable. Later on, patient developed a vaginal hematoma. She was taken to the operating room where an incision and drainage of the hematoma was performed. Once again, details of that surgery is also in the medical record. The patient did well and was discharged home on 12/20/2020. PAST MEDICAL HISTORY: No history of diabetes, hypertension, or asthma. PAST SURGICAL HISTORY: None. SOCIAL HISTORY: The patient is and lives with spouse. FAMILY HISTORY: Noncontributory. ALLERGIES: NO KNOWN DRUG ALLERGIES. REVIEW OF SYSTEMS: Negative except as dictated in the HPI. VITAL SIGNS: On 12/20/2020, blood pressure was 110/63, pulse was 80, respiration of 18, temperature was 36.7. LABORATORIES ON DISCHARGE: The patient's labs on 12/19/2020 showed hemoglobin of 10.3, hematocrit of 30.7. CONDITION ON DISCHARGE: Stable. PHYSICAL EXAMINATION: GENERAL: Well-developed, well-nourished white female in no acute distress. CARDIOVASCULAR: S1, S2, regular rhythm and rate. LUNGS: Clear to auscultation bilaterally. ABDOMEN: Nontender, nondistended. Fundus was firm and below umbilicus. EXTREMITIES: No cyanosis, clubbing or edema. OPERATIONS: 1. Spontaneous vaginal delivery. 2. Incision and drainage of vaginal hematoma . DISCHARGE DIAGNOSES: 1. . 2. Incision and drainage of vaginal hematoma post-delivery. PLAN ON DISCHARGE: The patient is discharged home with instructions regarding activity, diet, and followup appointment. STACEY
== END 2020-12-20 11:05 | disposition home or self-care (01) | DRG 768 ==
LOC: OPB 23:34 → 4S1 23:37 → 4S2 12-18 11:49

== ENCOUNTER 2023-03-20 09:08 | Inpatient (IN) ==
[2023-03-20] MEDS ORDERED: LIDOCAINE 1% LOCAL 20 ML VIAL INFIL PRN (09:42)
[2023-03-20] MEDS ORDERED: OXYTOCIN 30 UNITS/500 ML BAG IV PRN ×3 (09:42→14:34)
[2023-03-20] MEDS ORDERED: LACTATED RINGER'S 1,000 ML IV PRN (09:42)
--- NOTE | 2023-03-20 09:59 | History & Physical Report ---
Date of Service March 20, 2023 Assessment & Plan (1) : Plan: Augment ctx History of Present Illness Chief Complaint: contractions Primary Care Provider: Marcus Silverio MD 27 F [id number] at 39.5 weeks in early labor. GBS is negative. Allergies Allergy/AdvReac Type Severity Reaction Status Date / Time No Known Allergies Allergy Verified 12/18/20 00:07 Home Medications Medication Instructions Recorded Confirmed Type vits no.124-ferrous fum 1 tab PO DAILY@08 #90 tabs 12/20/20 03/20/23 Rx 27 mg iron-folic acid 800 mcg tablet ( Vitamin) ferrous sulfate 325 mg (65 mg 325 mg PO BID 03/20/23 03/20/23 History iron) tablet (iron) Patient History Medical History Bilateral kidney stones will have follow up 3 months PP Hx of abnormal cervical Pap smear repeat WNL Hx of maternal vaginal hematoma, currently with last baby, needed I&D Splenomegaly incidental finding. 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 Review of Systems All systems reviewed & are unremarkable except as noted in HPI & below Physical Exam Constitutional: WD/WN, vitals as above Eyes: PERRL, conjunctivae normal, anicteric sclerae Respiratory: normal respiratory effort, lungs clear to auscultation Cardiovascular: RRR, no murmur, no edema Gastrointestinal (Abdomen): normal bowel sounds, soft, nontender, no hepatosplenomegaly Skin: no rashes, warm and dry Neurologic: patellar DTR's 2+ bilat, sensation intact Psychiatric: A+Ox3, euthymic affect Genitourinary: no vaginal lesions, no adnexal mass OB Exam Abdomen: + fundal height and + vertex Manual OB Exam: + cervical dilation 3 cm, + cervical effacement 70% and + station high OB Exam Monitor Tracing: + external FHT monitor used, + external uterine monitor used, + category I and + normal FHT variability EFW 7.5 lbs. Results & Data Vital Signs (Past 12 Hours) Vital Signs Pulse BP 03/20/23 09:24 84 116/72 Code Status & VTE Plan VTE Prophylaxis Plan VTE Prophylaxis will be ordered: No Monitoring External Monitor Cat 1
[2023-03-20 10:18] LABS: Hematocrit (blood only) 34.5 % (37.0-47.0); Hemoglobin 11.9 g/dl (12.0-16.0); Mean Corpuscular Hemoglobin 27.4 pg (25.0-34.0); Mean Corpuscular Hgb Conc 34.5 g/dL (32.0-36.0); Mean Corpuscular Volume 79.3 fL (80.0-100.0); Mean Platelet Volume 10.8 fL (9.4-12.4); Platelet Count 141 K/uL (130-400); RDW Coefficient of Variation 15.2 % (11.5-14.5); RDW Standard Deviation 43.6 fL (36.4-46.3); Red Blood Count 4.35 M/uL (4.20-5.40); White Blood Count 6.57 K/ul (4.8-10.8)
[2023-03-20] MEDS ORDERED: SODIUM CHLORIDE 0.9% PF INJ 10 ML VIAL ONE (12:05)
[2023-03-20] MEDS ORDERED: BUPIVACAINE 0.25% PF 30 ML VIAL ONE (12:05)
[2023-03-20] MEDS ORDERED: LIDOCAINE 2%/EPINEPHRINE 1:200,000 20 ML PF ONE (12:05)
[2023-03-20] MEDS ORDERED: ePHEDrine sulfate 50 MG/ML AMP ONE (12:05)
[2023-03-20] MEDS ORDERED: fentaNYL citrate PF 100 MCG/2 ML VIAL ONE (12:05)
[2023-03-20] MEDS ORDERED: fentaNYL 2MCG/ML ROPIVACAINE 1.25MG/ML 100 ML BAG EPI ONE (12:06)
[2023-03-20] MEDS ORDERED: ONDANSETRON INJ 2 MG/ML 2 ML VIAL IV PRN (13:07)
[2023-03-20] MEDS ORDERED: LIDOCAINE 2% MPF LOCAL 5 ML VIAL EPI PRN (13:07)
[2023-03-20] MEDS ORDERED: NALOXONE HCL 1 MG in SODIUM CHLORIDE 0.9% 1000ML 1,000 ML IV PRN (13:07)
[2023-03-20] MEDS ORDERED: NALOXONE HCL 0.4 MG/1 ML VIAL/CARP IV PRN (13:07)
[2023-03-20] MEDS ORDERED: ROPIVACAINE 0.5% PF 5 MG/ML 20 ML VIAL EPI PRN (13:07)
[2023-03-20] MEDS ORDERED: BUPIVACAINE 0.25% PF 30 ML VIAL EPI STA (13:07)
[2023-03-20] MEDS ORDERED: SODIUM CHLORIDE 0.9% PF INJ 10 ML VIAL EPI PRN (13:07)
[2023-03-20] MEDS ORDERED: fentaNYL citrate PF 100 MCG/2 ML VIAL EPI STA (13:07)
[2023-03-20] MEDS ORDERED: ePHEDrine sulfate 50 MG/ML AMP IV PRN (13:07)
[2023-03-20] MEDS ORDERED: NALBUPHINE HCL INJ 10 MG/ML AMP IV PRN (13:07)
[2023-03-20] MEDS ORDERED: fentaNYL citrate PF 100 MCG/2 ML VIAL EPI PRN (13:07)
[2023-03-20] MEDS ORDERED: SODIUM CHLORIDE 0.9% PF INJ 10 ML VIAL EPI STA (13:07)
[2023-03-20] MEDS ORDERED: fentaNYL 2MCG/ML ROPIVACAINE 1.25MG/ML 100 ML BAG EPI PRN (13:07)
[2023-03-20] MEDS ORDERED: BUPIVACAINE 0.25% PF 30 ML VIAL EPI PRN (13:07)
[2023-03-20] MEDS ORDERED: LIDOCAINE 2%/EPINEPHRINE 1:200,000 20 ML PF EPI STA (13:07)
[2023-03-20] MEDS ORDERED: diphenhydrAMINE 50 MG/ML VIAL IV PRN (13:07)
--- NOTE | 2023-03-20 13:07 | Anesthesiology Consultation ---
Date of Service March 20, 2023 Assessment & Plan Chart Review Chart Review: Patient NOT seen in Pre Admission Testing and Acceptable Risk for Labor Epidural Consults Requested none ASA ASA2 Proposed Anesthesia Anesthesia Type: Labor Epidural Risk / Benefits Reviewed With: PT / POA / Parent / Guardian, Accepts Plan and Informed Consent Obtained History Height/Weight Height: 5 ft 4 in Weight: 80.286 kg Allergies Allergy/AdvReac Type Severity Reaction Status Date / Time No Known Allergies Allergy Verified 12/18/20 00:07 Medications Home Medications Medication Instructions Recorded Confirmed Last Taken vits no.124-ferrous fum 1 tab PO DAILY@08 #90 tabs 12/20/20 03/20/23 03/19/23 09:00 27 mg iron-folic acid 800 mcg tablet ( Vitamin) ferrous sulfate 325 mg (65 mg 325 mg PO BID 03/20/23 03/20/23 03/19/23 20:00 iron) tablet (iron) Active Medications Generic Name Dose Route Start Last Admin Trade Name Freq PRN Reason Stop Dose Admin Lactated Ringer's 1,000 mls @ 125 mls/hr 03/20/23 09:42 03/20/23 12:00 Lr IV 03/22/23 09:41 999 mls/hr .Q8H PRN Infusion L&D Protocol Protocol Oxytocin 30 units in 500 mls @ 7 mls/hr 03/20/23 09:45 03/20/23 12:00 Pitocin IV 03/22/23 09:44 0.42 units/hr .Q24H PRN 7 mls/hr Labor Induction/Augmentation Titration Protocol 0.42 UNITS/HR Past Medical History Medical History Bilateral kidney stones will have follow up 3 months PP Hx of abnormal cervical Pap smear repeat WNL Hx of maternal vaginal hematoma, currently with last baby, needed I&D Splenomegaly incidental finding. Will have follow up PP Exercise / Class Metabolic Activity II 4-5 Yardwork/Stairs/Walk up hill Past Anesthesia History No Hx of Anesthesia Complications and No Family Hx of Anesthesia Complications History of PONV No Hx of PONV and No Hx of Motion Sickness Social History Smoking Status: Never smoker Do You Dip or Chew Tobacco: No Hx Alcohol Use: No Hx Substance Use: No Physical Exam Vital Signs Last Vital Signs Temp 37.0 C 03/20/23 09:33 Pulse 89 03/20/23 13:04 Resp 20 03/20/23 09:33 BP 109/60 03/20/23 13:02 Pulse Ox 100 03/20/23 13:04 ENMT Mouth: no dentition abnormality Thyromental Distance: > or= 3.5 Finger Breadths Mallampati Class: II Neck normal visual inspection Respiratory normal respiratory effort Auscultation: lungs clear to auscultation bilaterally Cardiovascular Rate/Rhythm: regular rate and regular rhythm Psychiatric Orientation: alert Testing Laboratory Results 03/20/23 09:55
--- NOTE | 2023-03-20 13:28 | Labor Progress Brief Note ---
Date of Service March 20, 2023 Assessment & Plan Admission and Anticipated Discharge Date Admission Date: March 20, 2023 Physical Exam Genitourinary: Manual OB Exam: + cervical dilation 6 cm, + cervical effacement 100%, + station (AROM with Amni-hook clear fluid) -1 and + amniotic fluid clear OB Exam Monitor Tracing: + external FHT monitor used, + external uterine monitor used, + category I and + normal FHT variability Results & Data Vital Signs (Past 12 Hours) Vital Signs Temp Pulse Resp BP Pulse Ox 03/20/23 09:33 37.0 C 20 03/20/23 13:26 85 03/20/23 13:26 86/52 L 03/20/23 13:24 100 03/20/23 13:24 81 03/20/23 13:19 96 03/20/23 13:19 62 03/20/23 13:17 61 03/20/23 13:17 95/54 L 03/20/23 13:14 99 03/20/23 13:14 66 03/20/23 13:13 49 L 03/20/23 13:13 106/55 L 03/20/23 13:12 74 03/20/23 13:12 100/52 L 03/20/23 13:09 99 03/20/23 13:09 82 03/20/23 13:07 94 H 03/20/23 13:07 105/56 L 03/20/23 13:04 100 03/20/23 13:04 89 03/20/23 13:02 73 03/20/23 13:02 109/60 03/20/23 12:59 99 03/20/23 12:59 86 03/20/23 12:57 73 03/20/23 12:57 106/59 L 03/20/23 12:54 98 03/20/23 12:54 76 03/20/23 12:50 80 03/20/23 12:50 115/58 L 03/20/23 12:49 98 03/20/23 12:49 89 03/20/23 12:48 78 03/20/23 12:48 111/60 03/20/23 12:46 83 03/20/23 12:46 108/62 03/20/23 12:44 98 03/20/23 12:44 80 03/20/23 12:44 114/62 08/28/23 12:42 82 03/20/23 12:42 116/66 03/20/23 12:40 98 H 03/20/23 12:40 129/75 03/20/23 12:39 100 03/20/23 12:39 87 03/20/23 12:38 82 03/20/23 12:38 124/71 03/20/23 12:34 99 03/20/23 12:34 86 03/20/23 12:33 92 03/20/23 12:33 80 03/20/23 12:29 98 03/20/23 12:29 111 H 03/20/23 12:02 80 03/20/23 12:02 122/71 03/20/23 09:21 20 03/20/23 09:21 37.0 C 20 03/20/23 11:02 76 03/20/23 11:02 123/69 03/20/23 09:24 84 116/72
[2023-03-20] MEDS ORDERED: HYDROCORTISONE ACETATE 25 MG SUPP PR PRN (14:34)
[2023-03-20] MEDS ORDERED: bisacodyL 10 MG SUPP PR PRN (14:34)
[2023-03-20] MEDS ORDERED: BENZOCAINE 20% SPRY 85 APPLN/85 GM CAN EXT PRN (14:34)
[2023-03-20] MEDS ORDERED: DIPHTHERIA/TETANUS/PERTUSSIS Vaccine (Tdap, Age 7+yrs) 0.5mL SYR/VL IM ONE (14:34)
[2023-03-20] MEDS ORDERED: ACETAMINOPHEN 325 MG TAB PO PRN (14:34)
--- NOTE | 2023-03-20 14:41 | Delivery Summary ---
Vaginal Delivery Summary Date of Service March 20, 2023 Vaginal Delivery Summary live male ANTHONY over intact perineum with nuchal cord x1 reduced at delivery. Delayed cord clamping and Apgars 8/9 weight pending. Cord blood obtained followed by spontaneous delivery of intact placenta. No tears. EBL 100 ml. Final sponge and instrument count are correct. Mom and baby stable.
[2023-03-20] MEDS: FERROUS SULFATE 325 MG TAB PO SCH (20:32)
[2023-03-20] MEDS: DOCUSATE SODIUM 100 MG CAP PO SCH (20:32)
--- NOTE | 2023-03-20 21:14 | Anesthesia Procedure Note ---
Date of Service March 20, 2023 Anesthesia Post Epidural Note Vital Signs Vital Signs: Temp Pulse Resp BP Pulse Ox O2 Del Method 37.0 C 78 18 101/65 97 Room Air 03/20/23 20:00 03/20/23 20:00 03/20/23 20:00 03/20/23 20:00 03/20/23 20:00 03/20/23 20:00 Pain Intensity Bilateral Abdomen: Pain Intensity: 0 Notes Mental Status: alert / awake / arousable Nausea / Vomiting: adequately controlled Pain: adequately controlled Airway Patency, RR, SpO2: stable & adequate BP & HR: stable & adequate Hydration State: stable & adequate Neuraxial Anesthesia: was administered and sensory block is resolving Anesthetic Complications: no major complications apparent and Pt Satisfied with anesthetic care Epidural: Removed without complications and With tip intact
[2023-03-21] MEDS: IBUPROFEN 600 MG TAB PO PRN ×3 (03:29→11:52)
[2023-03-21 06:51] LABS: Hemoglobin 10.5 g/dl (12.0-16.0); Mean Corpuscular Hemoglobin 27.3 pg (25.0-34.0); Mean Corpuscular Hgb Conc 33.9 g/dL (32.0-36.0); Mean Corpuscular Volume 80.5 fL (80.0-100.0); Mean Platelet Volume 10.6 fL (9.4-12.4); Platelet Count 140 K/uL (130-400); RDW Coefficient of Variation 15.3 % (11.5-14.5); Red Blood Count 3.85 M/uL (4.20-5.40); White Blood Count 9.47 K/ul (4.8-10.8)
[2023-03-21] MEDS: DOCUSATE SODIUM 100 MG CAP PO SCH (07:30)
[2023-03-21] MEDS: FERROUS SULFATE 325 MG TAB PO SCH (07:31)
[2023-03-21] MEDS ORDERED: PRENATAL VITAMIN 1 TAB PO SCH ×2 (08:00)
--- NOTE | 2023-03-21 08:00 | Obstetrical Progress Note ---
Date of Service March 21, 2023 Assessment & Plan (1) Normal course: Continue routine PP care D/c home later today if baby is discharged With discharge instructions Subjective Ambulation: ambulating normally Voiding: no voiding problems Passing Gas:: Yes Diet Tolerance:: regular diet Lochia:: Moderate Feeding Type:: breast feeding Current Pain Level(1-10): 0 Doing well, no complaints today WOuld like to go home later today if baby is discharged Physical Exam Constitutional WD/WN, vitals as above Respiratory normal respiratory effort, lungs clear to auscultation Cardiovascular RRR, no murmur, no edema Gastrointestinal (Abdomen) normal bowel sounds, soft, nontender, no hepatosplenomegaly Results & Data Vital Signs (Past 12 Hours) Vital Signs Temp Pulse Resp BP Pulse Ox O2 Del Method 03/21/23 03:20 36.6 C 84 18 118/79 95 Room Air 03/21/23 00:30 36.8 C 79 18 106/66 97 Room Air Laboratory Results Laboratory Results WBC 9.47 K/ul (4.8-10.8) 03/21/23 06:24 RBC 3.85 M/uL (4.20-5.40) L 03/21/23 06:24 Hgb 10.5 g/dl (12.0-16.0) L 03/21/23 06:24 Hct 31.0 % (37.0-47.0) L 03/21/23 06:24 MCV 80.5 fL (80.0-100.0) 03/21/23 06:24 MCH 27.3 pg (25.0-34.0) 03/21/23 06:24 MCHC 33.9 g/dL (32.0-36.0) 03/21/23 06:24 RDW Std Deviation 45.0 fL (36.4-46.3) 03/21/23 06:24 RDW Coeff of Jeniffer 15.3 % (11.5-14.5) H 03/21/23 06:24 Plt Count 140 K/uL (130-400) 03/21/23 06:24 MPV 10.6 fL (9.4-12.4) 03/21/23 06:24
[2023-03-21] MEDS ORDERED: bisacodyL 5 MG TABEC PO SCH (20:00)
== END 2023-03-21 16:06 | disposition home or self-care (01) | DRG 807 ==
LOC: OPB 09:08 → 4S1 09:09 → 4E2 17:29
DX: Z3A.39 39 weeks gestation of pregnancy; O80 Encounter for full-term uncomplicated delivery; Z37.0 Single live birth